=== PATIENT | male | born 1985 | race Caucasian/White ===

== ENCOUNTER 2023-02-28 02:27 | Emergency (ER) | payer OTHER, MEDICAID, SELFPAY ==
[2023-02-28] VITALS (8 sets, daily range): BP systolic 124–160; BP diastolic 75–88; PULSE 73–91; RESP 16; TEMP 36.4–36.8; O2SAT 97–100; BMI 24.4
[2023-02-28 03:04] LABS: Add Manual Diff / Slide Review NO; Basophils Absolute Auto 100 /uL (0-100); Basophils Percent Auto 0.9 % (0-2); Eosinophils Absolute Auto 200 /uL (0-450); Eosinophils Percent Auto 1.7 % (2-4); Hematocrit 39.5 % (41-53); Hemoglobin 13.7 g/dL (13.5-17.5); Lymphocytes Absolute Auto 4300 /uL (1100-4500); Lymphocytes Percent Auto 36.6 % (25-40); Mean Corpuscular HGB Conc 34.7 % (30-36); Mean Corpuscular Hemoglobin 30.1 PG (26-34); Mean Corpuscular Volume 86.8 fL (80-100); Monocytes Absolute Auto 900 /uL (0-900); Monocytes Percent Auto 8.1 % (3-14); Neutrophils Absolute Auto 6200 /uL (1500-7000); Neutrophils Percent Auto 52.7 % (50-75); Platelet Count 248 X10^3/uL (150-400); Red Blood Cell Count 4.55 X10^6/uL (4.5-5.9); Red Cell Distribution Width 13.5 % (11.6-14.8); White Blood Cell Count 11.7 X10^3/uL (4.5-11.0)
--- NOTE | 2023-02-28 03:12 | ED.ABDPAIN ---
HPI - Abdominal Pain General Chief Complaint: Abdominal Pain Stated Complaint: abd pain, constipation, bloating Time Seen by Provider: 02/28/23 03:12 Source: family Mode of arrival: Ambulatory History of Present Illness HPI narrative: Patient is a 37 old male who presents with ongoing constipation and abdominal pain. He reports it has been ongoing for about a month. He was recently started on some sort of medication to help with his constipation. He thinks it is helping. He admits that he is smoking fentanyl regularly and that might be causing his constipation. No nausea or vomiting no fever. He frequently gets abdominal pains causing him to smoke more fentanyl. He denies any Tylenol or Motrin. Related Data Home Medications Medication Instructions Recorded Confirmed buprenorphine 8 mg-naloxone 2 mg 1 film sublingual DAILY 08/25/22 08/25/22 sublingual film hydroxyzine pamoate 50 mg capsule 50 mg PO BEDTIME 08/25/22 08/25/22 Previous Rx's Medication Instructions Recorded ibuprofen 800 mg tablet 800 mg PO TID PRN pain #30 tabs 08/25/22 Allergies Allergy/AdvReac Type Severity Reaction Status Date / Time No Known Drug Allergies Allergy Verified 08/25/22 14:02 Review of Systems Review of Systems ROS Unobtainable: All systems reviewed & are unremarkable except as noted in HPI and below Patient History Social History Smoking Status: Current every day smoker Smoking Status: Current every day smoker Substance Use Type: opiates Exam Initial Vital Signs Initial Vital Signs: Vital Signs Blood Pressure 142/85 H 02/28/23 02:36 GENERAL: Alert well-appearing 37-year-old and in no acute distress. HEENT: Head atraumatic,EOMI, pupils reactive, face symmetric, moist mucous membranes CARDIOVASCULAR: Regular rate and rhythm without murmurs, rubs or gallops. RESPIRATORY: Breath sounds equal bilaterally, no wheezes rales or rhonchi. ABDOMEN: Soft, mild abdominal tenderness no localization no guarding no rebound. Normoactive bowel sounds all 4 quadrants. No guarding or rebound. EXTREMITIES: Normal range of motion, no clubbing or edema. Neurovascularly intact NEUROLOGICAL: Alert and oriented x4. SKIN: Warm, dry, no laceration, no petechiae, no rashes or lesions. Course Orders Ordered: ED Orders 02/28/23 02:55 Complete Blood Count AUTO DIFF Stat Comprehensive Metabolic Panel Stat Lipase Stat 02/28/23 03:18 CT abdomen pelvis w con Stat Discontinued Medications Ketorolac Tromethamine (Ketorolac 30 Mg/Ml Vial) 15 mg IV NOW ONE Stop: 02/28/23 03:19 Last Admin: 02/28/23 03:26 Dose: 15 mg Documented By: HENRRY Vital Signs Vital signs: Vital Signs - 8 hr 02/28/23 02:36 02/28/23 02:37 02/28/23 02:37 Temperature Pulse Rate 91 H Respiratory Rate Blood Pressure 142/85 H 141/86 H Pulse Oximetry 100 Oxygen Delivery Method 02/28/23 02:41 02/28/23 03:00 02/28/23 03:00 Temperature 98.2 F Pulse Rate 85 73 Respiratory Rate 16 Blood Pressure 143/88 H 160/88 H Pulse Oximetry 99 99 Oxygen Delivery Method Room Air 02/28/23 03:30 02/28/23 03:30 02/28/23 04:37 Temperature Pulse Rate 75 86 Respiratory Rate Blood Pressure 130/84 Pulse Oximetry 98 97 Oxygen Delivery Method 02/28/23 04:38 02/28/23 04:38 02/28/23 05:00 Temperature 97.6 F Pulse Rate 84 79 Respiratory Rate 16 Blood Pressure 124/75 Pulse Oximetry 99 98 Oxygen Delivery Method 02/28/23 05:00 Temperature Pulse Rate Respiratory Rate Blood Pressure 141/81 H Pulse Oximetry Oxygen Delivery Method MDM - Abdominal Pain Lab Data 02/28/23 02:55 02/28/23 02:55 Labs: Lab Results 02/28/23 Range/Units 02:55 WBC 11.7 H (4.5-11.0) X10^3/uL RBC 4.55 (4.5-5.9) X10^6/uL Hgb 13.7 (13.5-17.5) g/dL Hct 39.5 L (41-53) % MCV 86.8 (80-100) fL MCH 30.1 (26-34) PG MCHC 34.7 (30-36) % RDW 13.5 (11.6-14.8) % Plt Count 248 (150-400) X10^3/uL Neut % (Auto) 52.7 (50-75) % Lymph % (Auto) 36.6 (25-40) % [place] % (Auto) 8.1 (3-14) % Eos % (Auto) 1.7 L (2-4) % Baso % (Auto) 0.9 (0-2) % Neut # (Auto) 6200 (3490-2654) /uL Lymph # (Auto) 4300 (0538-6016) /uL [place] # (Auto) 900 (0-900) /uL Eos # (Auto) 200 (0-450) /uL Baso # (Auto) 100 (0-100) /uL Sodium 137 (137-145) mmol/L Potassium 3.9 (3.4-5.1) mmol/L Chloride 100 (98-107) mmol/L Carbon Dioxide 30 (22-32) mmol/L BUN 8 L (9-20) mg/dL Creatinine 0.76 (0.66-1.25) mg/dL Estimated GFR > 60 (>60) mL/min BUN/Creatinine Ratio 10.5 (6-22) Glucose 100 (70-100) mg/dL Calcium 9.4 (8.4-10.2) mg/dL Total Bilirubin 0.3 (0.2-1.3) mg/dL AST 22 (17-59) IU/L ALT 28 (<50) IU/L Alkaline Phosphatase 62 (38-126) U/L Total Protein 7.4 (6.3-8.2) g/dL Albumin 4.3 (3.5-5.0) g/dL Globulin 3.1 (1.7-4.1) g/dL Albumin/Globulin Ratio 1.4 (1.0-2.8) Lipase 61 (23-300) U/L Imaging Data CT scan - abdomen/pelvis: Radiologist's Impression: Preliminary report unremarkable CT of abdomen pelvis with contrast MDM Narrative Medical decision making narrative: Patient 37-year-old male history of fentanyl abuse presenting with abdominal pain. Reports that he is trouble with constipation he is already taking some medication for it. He now some abdominal pain. Blood work is reassuring CT does not show any abnormality. Recommend Tylenol ibuprofen instead for pain rather than fentanyl. Discharge Plan Departure Patient Disposition: Home Clinical Impression: Abdominal pain Instructions: DI for Abdominal Pain-Adult Activity Restrictions/Additional Instructions: *You have been diagnosed with abdominal pain *What to do: At this time I strongly discouraged you for using fentanyl. It may be causing your problems. Recommend increasing your water intake along with high-fiber diet. *Continue to take medications as directed MiraLax once daily if needed for constipation Ibuprofen 600 mg every 6 hours if needed for pain Tylenol 650 mg every 4-6 hours if needed for *Follow up with your primary care provider in 2-3 days or call [phone] *Return to ER if you should have increasing pain nausea vomiting or any new, worsening or concerning symptoms Prescriptions: No Action hydroxyzine pamoate 50 mg capsule 50 mg PO BEDTIME buprenorphine-naloxone 8-2 mg film 1 film sublingual DAILY ibuprofen 800 mg tablet 800 mg PO TID PRN (Reason: pain) Qty: 30 0RF Rx Instructions: Take with food and water. Referrals: Yvette Malone PA-C [Primary Care Provider] - Stand Alone Forms: Patient Portal/API
[2023-02-28 03:13] LABS: Alanine Aminotransferase 28 IU/L (<50); Albumin 4.3 g/dL (3.5-5.0); Albumin Globulin Ratio 1.4 (1.0-2.8); Alkaline Phosphatase 62 U/L (38-126); Aspartate Aminotransferase 22 IU/L (17-59); BUN Creatinine Ratio 10.5 (6-22); Bilirubin Total 0.3 mg/dL (0.2-1.3); Blood Urea Nitrogen 8 mg/dL (9-20); Calcium 9.4 mg/dL (8.4-10.2); Carbon Dioxide 30 mmol/L (22-32); Chloride 100 mmol/L (98-107); Estimated Glomerular Filt Rate > 60 mL/min (>60); Globulin 3.1 g/dL (1.7-4.1); Glucose 100 mg/dL (70-100); HEMOLYSIS < 15 (0-50); Lipase 61 U/L (23-300); Potassium 3.9 mmol/L (3.4-5.1); Sodium 137 mmol/L (137-145); Total Protein 7.4 g/dL (6.3-8.2)
--- NOTE | 2023-02-28 03:18 | DI.CT.S_ITS ---
PROCEDURE: CT ABDOMEN PELVIS W CON INDICATIONS: Abdominal pain, constipation, bloating. TECHNIQUE: After the administration of IV contrast, axial sections were acquired from the lung bases to the pubic symphysis. Coronal and sagittal reformats were performed. For radiation dose reduction, the following was used: automated exposure control, adjustment of mA and/or kV according to patient size. COMPARISON: None. FINDINGS: Image quality: Excellent. Lung bases: Unremarkable. Heart: No significant findings. ABDOMEN: Liver: Unremarkable. Gallbladder: Unremarkable. Biliary ducts: Unremarkable. Pancreas: Unremarkable. Spleen: Unremarkable. Incidental note is made of an accessory splenule along the inferior aspect of the primary spleen. Adrenal Glands: Unremarkable. Kidneys and Ureters: The kidneys demonstrate normal size and enhance symmetrically. There is [id number] right-sided hydroureter and hydronephrosis, with mild left-sided hydroureter and hydronephrosis. No cause of obstruction can be seen. Stomach and Bowel: Stomach, small bowel loops, and colon are unremarkable. The volume of stool within the colon is normal. Peritoneum: No abnormal intraperitoneal fluid. No free air. Ventral Wall: A trace periumbilical hernia is seen, containing fat. Abdominal Nodes: No retroperitoneal or mesenteric adenopathy by size criteria. Vessels: Aorta and inferior vena cava are normal in size. PELVIS: Pelvic Organs: Unremarkable. Bladder: Unremarkable. Pelvic Nodes: No enlarged lymph nodes. Miscellaneous: No inguinal hernias are seen. Bones: Unremarkable. IMPRESSION: The volume of stool within the colon is normal. These imaging findings are not supportive a clinical diagnosis of constipation. No dilated loops of small bowel are seen. Bilateral hydronephrosis and hydroureter can be seen, right worse than left. No obstruction can be seen. Additional findings: Accessory splenule Trace periumbilical hernia Note: No significant discrepancy from the preliminary report. Dictated by: Lloyd Mendez M.D. on 02/28/2023 at 8:55 Approved by: Lloyd Mendez M.D. on 02/28/2023 at 8:58
[2023-02-28] MEDS: KETOROLAC 30 MG/ML VIAL 15 MG IV (03:26)
--- NOTE | 2023-02-28 04:31 | PC.NURSE ---
Addendum entered by Rosalind Fermni CNA 02/28/23 04:32: Continuining on previous, I have not done a urine POC on patient yet. Original Note: [employer] note: Note the POC and test: charted on the wrong patient. RN and doctor aware.
== END 2023-02-28 05:13 | disposition home or self-care (01) ==
PROVIDERS: Emergency Provider Emergency Medicine; PCP Physician Assistant
DX: R10.9 Unspecified abdominal pain (principal); K59.00 Constipation, unspecified
CPT/HCPCS: 36415; 74177; 80053; 83690; 85025; 96374; 99284; J1885; Q9967